=== PATIENT | male | born 1980 | race Two or more races ===

== ENCOUNTER 2018-01-22 00:21 | Emergency (ER) | payer MEDICAID, SELFPAY ==
[~2018-01-22] VITALS: Ht 175.3 cm; Wt 90.4 kg
[2018-01-22] MEDS ORDERED: INSU100V8 SQ (01:01)
[2018-01-22] MEDS ORDERED: LEVO50TA5 PO (01:01)
[2018-01-22] MEDS ORDERED: ATOR40TA PO (01:01)
[2018-01-22] MEDS ORDERED: SPIR25TA3 PO (01:01)
[2018-01-22] MEDS ORDERED: PREG50CA PO (01:01)
[2018-01-22] MEDS ORDERED: LISI-167 PO (01:01)
[2018-01-22] MEDS ORDERED: BETH10TA12 PO (01:01)
[2018-01-22] MEDS ORDERED: ISOS60TA36 PO (01:01)
[2018-01-22] MEDS ORDERED: CITA20TA6 PO (01:01)
[2018-01-22] MEDS ORDERED: METO-99 PO (01:01)
[2018-01-22] MEDS ORDERED: WARF10TA PO (01:01)
[2018-01-22] MEDS ORDERED: TAMS0.4C2 PO (01:01)
[2018-01-22] MEDS ORDERED: PROMETHAZINE 25 MG/ML, 1ML ONE (01:27)
[2018-01-22] MEDS ORDERED: ACETAMINOPHEN 500 MG TABLET ONE (01:27)
[2018-01-22] MEDS ORDERED: PROMETHAZINE 25 MG/ML, 1ML IM ONE (01:30)
[2018-01-22] MEDS ORDERED: ACETAMINOPHEN 500 MG TABLET PO ONE (01:30)
[2018-01-22 01:44] LABS: BASOPHILS # (AUTO) 0.06 x10^3/uL (0-0.1); BASOPHILS % (AUTO) 1 % (0-1); EOSINOPHILS # (AUTO) 0.26 x10^3/uL (0-0.4); EOSINOPHILS % (AUTO) 4 % (1-7); LYMPHOCYTES % (AUTO) 40 % (22-44); MD NO; MEAN CORPUSCULAR HEMOGLOBIN 30.6 pg (27.5-34.5); MEAN CORPUSCULAR VOLUME 89.8 fL (81-97); MEAN PLATELET VOLUME 7.5 fL (7.4-10.4); MONOCYTES # (AUTO) 0.77 x10^3/uL (0.2-0.8); MONOCYTES % (AUTO) 12 % (2-9); NEUTROPHILS # (AUTO) 2.95 x10^3/uL (1.8-6.8); NEUTROPHILS % (AUTO) 44 % (42-75); PLATELET COUNT 280 x10^3/uL (130-400); RED BLOOD COUNT 4.92 x10^6/uL (4.38-5.82); RED CELL DISTRIBUTION WIDTH 13.3 % (9.4-14.8)
[2018-01-22 01:51] LABS: INTERNATIONAL NORMALIZED RATIO 1.06 (0.93-1.1)
[2018-01-22 01:55] LABS: ALBUMIN 3.1 g/dL (3.4-5.0); ANION GAP 5 mmol/L (5-15); CALCIUM 8.7 mg/dL (8.5-10.1); CHLORIDE 105 mmol/L (98-107)
[2018-01-22 01:59] LABS: ALANINE AMINOTRANSFERASE 48 U/L (12-78); ALKALINE PHOSPHATASE 140 U/L (45-117); BILIRUBIN,TOTAL 0.5 mg/dL (0.2-1.0); CREATININE 1.48 mg/dL (0.7-1.3); TOTAL PROTEIN 6.9 g/dL (6.4-8.2)
[2018-01-22 02:38] VITALS: BP 123/78
== END 2018-01-22 03:50 | disposition home or self-care (01) ==
LOC: ED 03:00
DX: E11.22 Type 2 diabetes mellitus with diabetic chronic kidney disease (principal); E11.65 Type 2 diabetes mellitus with hyperglycemia; N18.5 Chronic kidney disease, stage 5; R55 Syncope and collapse; R51 Headache
CPT/HCPCS: 36415; 70450; 80053; 85025; 85610; 85730; 93005; 96372; 99285; J2550

== ENCOUNTER 2018-04-20 21:47 | Inpatient (IN) | payer MEDICAID ==
[~2018-04-20] VITALS: Ht 175.3 cm; Wt 91.1 kg
[~2018-04-20 21:47] MED LIST: ATOR40TA PO; BETH10TA12 PO; CITA20TA6 PO; INSU100V8 SQ; ISOS60TA36 PO; LEVO50TA5 PO; LISI-167 PO; METO-99 PO; PREG50CA PO; SPIR25TA5 PO; TAMS0.4C2 PO; WARF10TA PO
[2018-04-20] MEDS ORDERED: ASPIRIN 81 MG TABLET CHEW ONE (22:22)
[2018-04-20] MEDS ORDERED: ASPIRIN 81 MG TABLET CHEW PO ONE (22:30)
[2018-04-20 22:31] LABS: BASOPHILS # (AUTO) 0.08 x10^3/uL (0-0.1); BASOPHILS % (AUTO) 1 % (0-1); EOSINOPHILS # (AUTO) 0.19 x10^3/uL (0-0.4); EOSINOPHILS % (AUTO) 2 % (1-7); LYMPHOCYTES # (AUTO) 3.73 x10^3/uL (1-3.4); LYMPHOCYTES % (AUTO) 39 % (22-44); MD NO; MEAN CORPUSCULAR HEMOGLOBIN 29.9 pg (27.5-34.5); MEAN CORPUSCULAR HGB CONC 33.3 g/dL (33.2-36.2); MEAN CORPUSCULAR VOLUME 89.9 fL (81-97); MEAN PLATELET VOLUME 7.4 fL (7.4-10.4); MONOCYTES # (AUTO) 0.82 x10^3/uL (0.2-0.8); MONOCYTES % (AUTO) 9 % (2-9); NEUTROPHILS # (AUTO) 4.72 x10^3/uL (1.8-6.8); NEUTROPHILS % (AUTO) 50 % (42-75); PLATELET COUNT 328 x10^3/uL (130-400); RED BLOOD COUNT 4.82 x10^6/uL (4.38-5.82); RED CELL DISTRIBUTION WIDTH 13.4 % (9.4-14.8)
[2018-04-20 22:41] LABS: ALANINE AMINOTRANSFERASE 108 U/L (12-78); ANION GAP 7 mmol/L (5-15); CALCIUM 8.6 mg/dL (8.5-10.1); CHLORIDE 104 mmol/L (98-107); CREATININE 1.14 mg/dL (0.7-1.3)
[2018-04-20 22:45] LABS: ALKALINE PHOSPHATASE 140 U/L (45-117); BILIRUBIN,TOTAL 0.3 mg/dL (0.2-1.0)
[2018-04-20 22:47] LABS: TROPONIN I 0.121 ng/mL (0.000-0.045)
[2018-04-20] MEDS ORDERED: NITROGLYCERIN OINT 2%, 1GM TP ONE ×2 (23:23→23:30)
[2018-04-20] MEDS ORDERED: MORPHINE SULFATE 4 MG/ML, 1ML ONE (23:24)
[2018-04-20] MEDS ORDERED: SODIUM CHLORIDE FLUSH 10ML SYR IVF ONE (23:30)
[2018-04-20] MEDS ORDERED: MORPHINE SULFATE 4 MG/ML, 1ML IVPush PRN (23:30)
[2018-04-20 23:34] LABS: INTERNATIONAL NORMALIZED RATIO 1.89 (0.93-1.1); PROTHROMBIN TIME 19.2 Seconds (9.6-11.5)
[2018-04-21 00:07] VITALS: BP 157/97
[2018-04-21] MEDS ORDERED: BISACODYL 10 MG SUPP PR PRN (00:30)
[2018-04-21] MEDS ORDERED: POLYETHYLENE GLYCOL 17 GM PACKET PO PRN (00:30)
[2018-04-21] MEDS ORDERED: OXYcodone IR 5MG TABLET PO PRN (00:30)
[2018-04-21] MEDS ORDERED: PROMETHAZINE 25 MG/ML, 1ML IM PRN (00:30)
[2018-04-21] MEDS ORDERED: morphine SULFATE 10 MG/ML, 1ML IVPush PRN (00:30)
[2018-04-21] MEDS ORDERED: hydrALAzine 20 MG/ML, 1ML IVPush PRN (00:30)
[2018-04-21] MEDS ORDERED: DOCUSATE 100 MG CAPSULE PO PRN (00:30)
[2018-04-21] MEDS ORDERED: ONDANSETRON 2MG/ML, 2ML IVPush PRN (00:30)
[2018-04-21] MEDS ORDERED: ONDANSETRON ODT 4 MG PO PRN (00:30)
[2018-04-21] MEDS ORDERED: LABETALOL 5MG/ML, 20ML IVPush PRN (00:30)
[2018-04-21] MEDS: NICOTINE 7 MG/24 HR PATCH.TD24 TD SCH (00:50)
[2018-04-21] MEDS: BETHANECHOL 10 MG TABLET PO SCH ×4 (00:55→20:09)
[2018-04-21] MEDS ORDERED: HEPARIN 5,000 UNITS/ML, 1ML IV ONE (01:00)
[2018-04-21 01:06] LABS: FREE T4 (FREE THYROXINE) 0.69 ng/dL (0.76-1.46); HEMOGLOBIN A1C 12.5 % (4.2-6.3); THYROID STIMULATING HORMONE 10.3 mIU/L (0.358-3.740)
[2018-04-21] MEDS: PREGABALIN 25 MG CAPSULE PO SCH ×4 (01:15→20:09)
[2018-04-21] MEDS: INSULIN LISPRO 100 UNITS/ML, PEN SQ-INSULIN SCH ×5 (01:22→20:09)
[2018-04-21] MEDS: HEPARIN 25,000 UNITS/500ML PMX 500 ML IV PRN (01:45)
[2018-04-21] MEDS: SODIUM CHLORIDE 0.9% 1,000 ML IV SCH ×2 (02:07→11:13)
[2018-04-21 03:08] VITALS: BP 145/96
[2018-04-21 03:31] LABS: BASOPHILS # (AUTO) 0.07 x10^3/uL (0-0.1); BASOPHILS % (AUTO) 1 % (0-1); EOSINOPHILS # (AUTO) 0.38 x10^3/uL (0-0.4); EOSINOPHILS % (AUTO) 4 % (1-7); LYMPHOCYTES # (AUTO) 4.03 x10^3/uL (1-3.4); LYMPHOCYTES % (AUTO) 39 % (22-44); MD NO; MEAN CORPUSCULAR HEMOGLOBIN 29.8 pg (27.5-34.5); MEAN CORPUSCULAR HGB CONC 33.2 g/dL (33.2-36.2); MEAN CORPUSCULAR VOLUME 89.9 fL (81-97); MEAN PLATELET VOLUME 7.2 fL (7.4-10.4); MONOCYTES # (AUTO) 0.76 x10^3/uL (0.2-0.8); MONOCYTES % (AUTO) 7 % (2-9); NEUTROPHILS # (AUTO) 5.09 x10^3/uL (1.8-6.8); NEUTROPHILS % (AUTO) 49 % (42-75); PLATELET COUNT 344 x10^3/uL (130-400); RED BLOOD COUNT 4.56 x10^6/uL (4.38-5.82); RED CELL DISTRIBUTION WIDTH 13.8 % (9.4-14.8)
[2018-04-21 03:44] LABS: ALANINE AMINOTRANSFERASE 99 U/L (12-78); ALBUMIN 2.7 g/dL (3.4-5.0); ANION GAP 8 mmol/L (5-15); CALCIUM 8.2 mg/dL (8.5-10.1); CHLORIDE 108 mmol/L (98-107); CHOLESTEROL, TOTAL 126 mg/dL (140-239); CREATININE 0.88 mg/dL (0.7-1.3)
[2018-04-21 03:48] LABS: ALKALINE PHOSPHATASE 125 U/L (45-117); BILIRUBIN,TOTAL 0.3 mg/dL (0.2-1.0); HDL CHOLESTEROL (DIRECT) 43 mg/dL (40-60); TOTAL PROTEIN 6.2 g/dL (6.4-8.2); TRIGLYCERIDES 81 mg/dL (50-200); VLDL CHOLESTEROL 16 mg/dL (0-25)
[2018-04-21 03:49] LABS: CHOL/HDL RATIO 2.9; HDL CHOL % 34 % (26-37); LDL CHOLESTEROL,CALCULATED 67 mg/dL (54-169); LDL/HDL RATIO 1.6 (0.5-3.0); TROPONIN I 0.122 ng/mL (0.000-0.045)
[2018-04-21 07:31] LABS: INTERNATIONAL NORMALIZED RATIO 1.89 (0.93-1.1); PROTHROMBIN TIME 19.2 Seconds (9.6-11.5)
[2018-04-21 07:36] VITALS: BP 106/60
[2018-04-21] MEDS: METOPROLOL TARTRATE 50 MG TABLET PO SCH ×2 (08:21→20:08)
[2018-04-21] MEDS: SPIRONOLACTONE 25 MG TABLET PO SCH (08:22)
[2018-04-21] MEDS: ISOSORBIDE MONONITRATE ER 60 MG TABLET PO SCH (08:22)
[2018-04-21] MEDS: TAMSULOSIN 0.4 MG CAP.ER.24H PO SCH (08:23)
[2018-04-21] MEDS: LISINOPRIL 10 MG TABLET PO SCH (08:23)
[2018-04-21] MEDS: HEPARIN 5,000 UNITS/ML, 1ML IV PRN ×2 (08:26→16:30)
[2018-04-21] MEDS: CITALOPRAM 20 MG TABLET PO SCH (09:00)
[2018-04-21] MEDS: LEVOTHYROXINE 50 MCG TABLET PO SCH (09:00)
[2018-04-21 09:09] LABS: TROPONIN I 0.121 ng/mL (0.000-0.045)
[2018-04-21] MEDS: ATORVASTATIN 40 MG TABLET PO SCH (09:27)
[2018-04-21 13:17] VITALS: BP 93/54
[2018-04-21 13:23] LABS: CULTURE INDICATED? YES; MICROSCOPIC AUTO
[2018-04-21 13:31] LABS: AMPHETAMINE SCREEN, URINE Negative (Negative); BARBITURATE SCREEN, URINE Negative (Negative); BENZODIAZEPINE SCREEN, URINE Negative (Negative); CANNABINOID SCREEN, URINE Negative (Negative); COCAINE SCREEN, URINE Negative (Negative); METHADONE SCREEN, URINE Negative (Negative); OPIATE SCREEN, URINE Positive (Negative)
[2018-04-21] MEDS ORDERED: WARFARIN 10 MG TABLET PO-COUM ONE (18:00)
[2018-04-21 19:58] VITALS: BP 114/62
[2018-04-22] MEDS: HEPARIN 5,000 UNITS/ML, 1ML IV PRN (00:01)
[2018-04-22] MEDS: HEPARIN 25,000 UNITS/500ML PMX 500 ML IV PRN (00:04)
[2018-04-22 00:10] VITALS: BP 118/69
[2018-04-22] MEDS: NICOTINE 7 MG/24 HR PATCH.TD24 TD SCH (00:30)
[2018-04-22 06:27] LABS: INTERNATIONAL NORMALIZED RATIO 1.38 (0.93-1.1); PROTHROMBIN TIME 14.1 Seconds (9.6-11.5)
[2018-04-22] MEDS ORDERED: INSULIN GLARGINE 100 UNITS/ML, PEN SQ-INSULIN SCH (06:30)
[2018-04-22] MEDS ORDERED: ENOX100S5 SQ (07:20)
[2018-04-22] MEDS ORDERED: ENOXAPARIN 100 MG/ML SQ SCH (07:30)
[2018-04-22 07:45] VITALS: BP 119/77
[2018-04-22] MEDS: ATORVASTATIN 40 MG TABLET PO SCH (08:04)
[2018-04-22] MEDS: CITALOPRAM 20 MG TABLET PO SCH (08:18)
[2018-04-22] MEDS: TAMSULOSIN 0.4 MG CAP.ER.24H PO SCH (08:18)
[2018-04-22] MEDS: BETHANECHOL 10 MG TABLET PO SCH (08:18)
[2018-04-22] MEDS: LEVOTHYROXINE 50 MCG TABLET PO SCH (08:18)
[2018-04-22] MEDS: PREGABALIN 25 MG CAPSULE PO SCH (08:18)
[2018-04-22] MEDS: METOPROLOL TARTRATE 50 MG TABLET PO SCH (08:19)
[2018-04-22] MEDS: LISINOPRIL 10 MG TABLET PO SCH (08:19)
[2018-04-22] MEDS: ISOSORBIDE MONONITRATE ER 60 MG TABLET PO SCH (08:19)
[2018-04-22] MEDS: SPIRONOLACTONE 25 MG TABLET PO SCH (08:19)
[2018-04-22] MEDS: INSULIN LISPRO 100 UNITS/ML, PEN SQ-INSULIN SCH (08:20)
[2018-04-22] MEDS ORDERED: WARF10TA PO (09:26)
== END 2018-04-22 12:48 | disposition home or self-care (01) | DRG 281 ==
LOC: ED 22:33 → EDIP 23:14 → 5SO 04-21 00:23 → DCLOUNGE 04-22 12:35
PROVIDERS: ADMIT Internal Medicine; ATTEND Internal Medicine
DX: I21.4 Non-ST elevation (NSTEMI) myocardial infarction (principal); D68.69 Other thrombophilia; E44.0 Moderate protein-calorie malnutrition; I42.9 Cardiomyopathy, unspecified; E03.9 Hypothyroidism, unspecified; E11.9 Type 2 diabetes mellitus without complications; E78.5 Hyperlipidemia, unspecified; G89.29 Other chronic pain; F32.9 Major depressive disorder, single episode, unspecified; I25.110 Atherosclerotic heart disease of native coronary artery with unstable angina pectoris; I11.0 Hypertensive heart disease with heart failure; F15.10 Other stimulant abuse, uncomplicated; I50.9 Heart failure, unspecified; N40.0 Benign prostatic hyperplasia without lower urinary tract symptoms; Z79.01 Long term (current) use of anticoagulants; Z82.49 Family history of ischemic heart disease and other diseases of the circulatory system; Z87.891 Personal history of nicotine dependence; Z95.1 Presence of aortocoronary bypass graft; Z79.899 Other long term (current) drug therapy; Z68.29 Body mass index [BMI] 29.0-29.9, adult
CPT/HCPCS: 36415; 71045; 80053; 80061; 80307; 81001; 82962; 83036; 83735; 84439; 84443; 84484; 85025; 85520; 85610; 85730; 87077; 87086; 87186; 93005; 96374; G0378; J1644; J1650; J1815; J2270; J7030

== ENCOUNTER 2019-09-29 08:51 | Inpatient (IN) | payer MEDICAID ==
[~2019-09-29] VITALS: Ht 175.3 cm; Wt 93.8 kg
[~2019-09-29 08:51] MED LIST changes: +ENOX100S5 SQ
--- NOTE | 2019-09-29 08:57 | NUR ---
840 code cardiac paged 840 cardiology paged 842 pharmacy laboratory technician in house and aware/dr antunez in pharmacy laboratory technician and aware 850 pt arrived to er trauma [address] antunez at bedside
[2019-09-29 09:18] LABS: BASOPHILS # (AUTO) 0.03 x10^3/uL (0-0.1); BASOPHILS % (AUTO) 0 % (0-1); EOSINOPHILS % (AUTO) 2 % (1-7); LYMPHOCYTES # (AUTO) 1.82 x10^3/uL (1-3.4); LYMPHOCYTES % (AUTO) 26 % (22-44); MD NO; MEAN CORPUSCULAR HEMOGLOBIN 29.9 pg (27.5-34.5); MEAN CORPUSCULAR HGB CONC 33.4 g/dL (33.2-36.2); MEAN CORPUSCULAR VOLUME 89.4 fL (81-97); MEAN PLATELET VOLUME 7.5 fL (7.4-10.4); MONOCYTES # (AUTO) 0.46 x10^3/uL (0.2-0.8); MONOCYTES % (AUTO) 7 % (2-9); NEUTROPHILS # (AUTO) 4.49 x10^3/uL (1.8-6.8); NEUTROPHILS % (AUTO) 65 % (42-75); PLATELET COUNT 377 x10^3/uL (130-400); RED CELL DISTRIBUTION WIDTH 13.3 % (9.4-14.8)
[2019-09-29] MEDS ORDERED: SODIUM CHLORIDE 0.9% 1,000ML IVBOLUS ONE (09:30)
--- NOTE | 2019-09-29 09:31 | NUR ---
CODE CARDIAC CALLED OVERHEAD. PT HAD SUDDEN-ONSET CHEST PAIN WHILE STANDING AT WORK TODAY AT AROUND 8AM. CHEST PAIN RESOLVED UPON ARRIVAL. PT WAS GIVEN 324 ASA EN ROUTE BY EMS. CODE CARDIAC WAS CANCELLED BY DR. GONZALEZ, WHO SAW PATIENT AT BEDSIDE, AND DR. AREVALO.
[2019-09-29 09:35] LABS: ALBUMIN 2.7 g/dL (3.4-5.0); ANION GAP 8 mmol/L (5-15); CALCIUM 8.5 mg/dL (8.5-10.1); CHLORIDE 103 mmol/L (98-107)
[2019-09-29 09:38] LABS: ALANINE AMINOTRANSFERASE 30 U/L (12-78); ALKALINE PHOSPHATASE 180 U/L (45-117); BILIRUBIN,TOTAL 0.3 mg/dL (0.2-1.0); CREATININE 1.19 mg/dL (0.7-1.3); TOTAL PROTEIN 7.3 g/dL (6.4-8.2)
[2019-09-29 09:40] LABS: TROPONIN I 0.157 ng/mL (0.000-0.045)
--- NOTE | 2019-09-29 09:51 | NUR ---
PATIENT COMPLAINED OF URINARY RETENTION. NOTIFIED DR. AREVALO. PATIENT VOIDED APPROX. 275 ML URINE THEN BLADDER SCAN WAS PERFORMED WITH A RESIDUAL OF 333ML. DR. AREVALO NOTIFIED. URINE COLLECTED AND SENT TO LAB. Addendum: 09/29/19 at 1024 by EZBOB URINE FROM VOIDING NOT SENT TO LAB. BOGGS CATHETER WAS INSERTED AND URINE THAT WAS SENT TO LAB WAS FROM CATHETER INSERTION.
[2019-09-29] MEDS ORDERED: LIDOCAINE 2%,20 ML JEL.PF.APP MM ONE (10:02)
--- NOTE | 2019-09-29 10:23 | NUR ---
BOGGS CATHETER INSTERTED AT THE ORDER OF DR. AREVALO. URINE COLLECTED AND SENT TO LAB.
[2019-09-29] MEDS ORDERED: ASPIRIN 81 MG TABLET CHEW PO ONE (10:30)
[2019-09-29 10:37] LABS: MICROSCOPIC AUTO
[2019-09-29 10:42] LABS: CULTURE INDICATED? YES
--- NOTE | 2019-09-29 10:42 | NUR ---
REPORT RECEIVED FROM PANCHO JORDAN, ASSUMED CARE OF PT.
[2019-09-29] MEDS ORDERED: ASPIRIN 81 MG TABLET CHEW ONE (10:43)
--- NOTE | 2019-09-29 10:47 | NUR ---
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
--- NOTE | 2019-09-29 11:47 | NUR ---
PT RESTING ON GURNEY AT THIS TIME, VSS. NAD NOTED.
--- NOTE | 2019-09-29 12:23 | NUR ---
ADMITTIMG PROVIDER IN TO EVAL PT
[2019-09-29] MEDS ORDERED: ONDANSETRON 2MG/ML, 2ML IV PRN (13:00)
[2019-09-29] MEDS: INSULIN LISPRO 100 UNITS/ML, PEN SQ-INSULIN SCH ×3 (13:00→20:30)
[2019-09-29] MEDS ORDERED: NITROGLYCERIN 0.4 MG BOTTLE (25 TABS) SL PRN (13:00)
[2019-09-29] MEDS ORDERED: NITROGLYCERIN 0.4 MG/SPRAY SL PRN (13:00)
[2019-09-29] MEDS ORDERED: morphine SULFATE 10 MG/ML, 1ML IV PRN (13:00)
[2019-09-29] MEDS ORDERED: NITROGLYCERIN SINGLE TAB 0.4 MG SL PRN (13:00)
[2019-09-29] MEDS ORDERED: CEFTRIAXONE PMX 1GM/50ML 50 ML ONE (14:22)
--- NOTE | 2019-09-29 15:03 | NUR ---
PT GIVEN MEAL TRAY AT THIS TIME. VSS, NAD NOTED
[2019-09-29] MEDS: CEFTRIAXONE PMX 1GM/50ML 50 ML IV SCH (15:21)
--- NOTE | 2019-09-29 15:22 | NUR ---
PHARM CALLED TO VERIFY HEPARIN ACS GTT. HAS NOT BEEN VERIFIED YET. Addendum: 09/29/19 at 1531 by AMCCOMB 10A ORDERED STAT.
[2019-09-29] MEDS ORDERED: HEPARIN 5,000 UNITS/ML, 1ML ONE (15:26)
[2019-09-29] MEDS ORDERED: HEPARIN 25,000 UNITS/250ML PMX 250 ML ONE (15:26)
[2019-09-29] MEDS: HEPARIN 25,000 UNITS/250ML PMX 250 ML IV PRN (15:51)
[2019-09-29] MEDS: HEPARIN 5,000 UNITS/ML, 1ML IV ONE ×2 (15:52→15:54)
--- NOTE | 2019-09-29 16:27 | NUR ---
REPORT TO RECIEVING RN
[2019-09-29 17:00] LABS: AMPHETAMINE SCREEN, URINE Negative (Negative); BARBITURATE SCREEN, URINE Negative (Negative); BENZODIAZEPINE SCREEN, URINE Negative (Negative); CANNABINOID SCREEN, URINE Negative (Negative); COCAINE SCREEN, URINE Negative (Negative); METHADONE SCREEN, URINE Negative (Negative); OPIATE SCREEN, URINE Negative (Negative)
[2019-09-29] MEDS: SODIUM CHLORIDE 0.9% 1,000 ML IV SCH (17:33)
[2019-09-29] MEDS: PREGABALIN 25 MG CAPSULE PO SCH ×2 (17:33→20:28)
[2019-09-29] MEDS: TAMSULOSIN 0.4 MG CAP.ER.24H PO SCH (17:33)
[2019-09-29] MEDS: SPIRONOLACTONE 25 MG TABLET PO SCH (17:34)
[2019-09-29] MEDS: BETHANECHOL 10 MG TABLET PO SCH ×2 (18:04→20:28)
[2019-09-29 18:07] VITALS: BP 143/62
[2019-09-29 20:14] VITALS: BP 147/95
[2019-09-29] MEDS: SODIUM CHLORIDE FLUSH 10ML SYR IVF SCH (20:27)
[2019-09-29] MEDS ORDERED: INSULIN GLARGINE 100 UNITS/ML, PEN SQ-INSULIN SCH (21:00)
[2019-09-29] MEDS ORDERED: NICOTINE 21 MG/24 HR PATCH.TD24 TD SCH (21:30)
[2019-09-29 22:07] LABS: TROPONIN I 0.176 ng/mL (0.000-0.045)
[2019-09-29] MEDS: NICOTINE 21 MG/24 HR PATCH.TD24 TD SCH (22:18)
[2019-09-29] MEDS: HEPARIN 5,000 UNITS/ML, 1ML IV PRN (23:20)
[2019-09-30 00:24] VITALS: BP 129/77
[2019-09-30] MEDS: SODIUM CHLORIDE 0.9% 1,000 ML IV SCH ×2 (01:25→09:38)
[2019-09-30] MEDS: ASPIRIN 325 MG TABLET EC PO SCH (05:42)
[2019-09-30] MEDS: HEPARIN 5,000 UNITS/ML, 1ML IV PRN ×2 (06:09→13:16)
[2019-09-30 06:49] LABS: MICROSCOPIC INDICATED
[2019-09-30 06:58] LABS: CULTURE INDICATED? NO
[2019-09-30 07:18] VITALS: BP 156/112
[2019-09-30] MEDS: ISOSORBIDE MONONITRATE ER 60 MG TABLET PO SCH (08:28)
[2019-09-30] MEDS: INSULIN LISPRO 100 UNITS/ML, PEN SQ-INSULIN SCH ×4 (08:28→20:40)
[2019-09-30] MEDS: LEVOTHYROXINE 50 MCG TABLET PO SCH (08:29)
[2019-09-30] MEDS: SPIRONOLACTONE 25 MG TABLET PO SCH (08:29)
[2019-09-30] MEDS: BETHANECHOL 10 MG TABLET PO SCH ×3 (08:29→20:39)
[2019-09-30] MEDS: CITALOPRAM 20 MG TABLET PO SCH (08:29)
[2019-09-30] MEDS: TAMSULOSIN 0.4 MG CAP.ER.24H PO SCH (08:29)
[2019-09-30] MEDS: LISINOPRIL 10 MG TABLET PO SCH (08:29)
[2019-09-30] MEDS: SODIUM CHLORIDE FLUSH 10ML SYR IVF SCH ×2 (08:30→20:39)
[2019-09-30] MEDS: PREGABALIN 25 MG CAPSULE PO SCH ×3 (08:38→20:39)
[2019-09-30 08:50] LABS: CHOL/HDL RATIO 5.3; LDL/HDL RATIO 2.3 (0.5-3.0)
[2019-09-30] MEDS ORDERED: ATORVASTATIN 40 MG TABLET PO SCH (09:00)
[2019-09-30] MEDS ORDERED: REGADENOSON 0.4 MG/5 ML SYRINGE ONE (11:20)
[2019-09-30] MEDS: CEFTRIAXONE PMX 1GM/50ML 50 ML IV SCH (12:52)
[2019-09-30] MEDS: HEPARIN 25,000 UNITS/250ML PMX 250 ML IV PRN (13:15)
[2019-09-30 13:18] VITALS: BP 104/69
[2019-09-30] MEDS: CARVEDILOL 3.125 MG TABLET PO SCH (16:59)
[2019-09-30 20:36] VITALS: BP 145/76
[2019-09-30] MEDS: NICOTINE 21 MG/24 HR PATCH.TD24 TD SCH (20:40)
[2019-09-30] MEDS ORDERED: INSULIN GLARGINE 100 UNITS/ML, PEN SQ-INSULIN SCH (21:00)
[2019-10-01 03:56] VITALS: BP 124/74
[2019-10-01] MEDS: CARVEDILOL 3.125 MG TABLET PO SCH (05:10)
[2019-10-01] MEDS: ASPIRIN 325 MG TABLET EC PO SCH (05:10)
[2019-10-01 07:40] VITALS: BP 132/80
[2019-10-01] MEDS: TAMSULOSIN 0.4 MG CAP.ER.24H PO SCH (08:43)
[2019-10-01] MEDS: BETHANECHOL 10 MG TABLET PO SCH ×2 (08:43→16:45)
[2019-10-01] MEDS: INSULIN LISPRO 100 UNITS/ML, PEN SQ-INSULIN SCH ×3 (08:44→16:45)
[2019-10-01] MEDS: ISOSORBIDE MONONITRATE ER 60 MG TABLET PO SCH (08:44)
[2019-10-01] MEDS: LEVOTHYROXINE 50 MCG TABLET PO SCH (08:44)
[2019-10-01] MEDS: SPIRONOLACTONE 25 MG TABLET PO SCH (08:44)
[2019-10-01] MEDS: LISINOPRIL 10 MG TABLET PO SCH (08:44)
[2019-10-01] MEDS: CITALOPRAM 20 MG TABLET PO SCH (08:45)
[2019-10-01] MEDS: PREGABALIN 25 MG CAPSULE PO SCH ×2 (08:45→16:45)
[2019-10-01] MEDS: SODIUM CHLORIDE FLUSH 10ML SYR IVF SCH (08:46)
[2019-10-01] MEDS: CEFTRIAXONE PMX 1GM/50ML 50 ML IV SCH (11:49)
[2019-10-01] MEDS ORDERED: SODIUM CHLORIDE 0.9% 1,000 ML IV SCH (13:00)
[2019-10-01 13:21] VITALS: BP 131/80
[2019-10-01] MEDS ORDERED: TAMS-11 PO (14:54)
[2019-10-01] MEDS ORDERED: ISOS60TA36 PO (14:54)
[2019-10-01] MEDS ORDERED: CARV3.1212 PO (14:54)
[2019-10-01] MEDS ORDERED: CITA20TA6 PO (14:54)
[2019-10-01] MEDS ORDERED: LEVO50TA5 PO (14:54)
[2019-10-01] MEDS ORDERED: SPIR25TA5 PO (14:54)
[2019-10-01] MEDS ORDERED: INSU100V8 SQ (14:54)
[2019-10-01] MEDS ORDERED: LISI-167 PO (14:54)
[2019-10-01] MEDS ORDERED: BETHANECHOL PO (14:54)
[2019-10-01] MEDS ORDERED: PREG50CA PO (14:54)
[2019-10-01] MEDS ORDERED: INSU100I11 SQ-INSULIN (14:54)
[2019-10-01] MEDS ORDERED: ATOR40TA PO (14:54)
[2019-10-01] MEDS ORDERED: ASPI81TA45 PO (14:55)
[2019-10-01] MEDS ORDERED: ATORVASTATIN 40 MG TABLET PO SCH (21:00)
== END 2019-10-01 16:49 | disposition home or self-care (01) | DRG 303 ==
LOC: MERGE 08:51 → ED 09:05 → EDIP 13:42 → 5SO 17:20 → DCLOUNGE 10-01 16:30
PROVIDERS: ADMIT Internal Medicine; ATTEND Internal Medicine
DX: I25.10 Atherosclerotic heart disease of native coronary artery without angina pectoris (principal); I50.40 Unspecified combined systolic (congestive) and diastolic (congestive) heart failure; J98.11 Atelectasis; E03.9 Hypothyroidism, unspecified; I42.7 Cardiomyopathy due to drug and external agent; E11.65 Type 2 diabetes mellitus with hyperglycemia; E78.5 Hyperlipidemia, unspecified; F15.90 Other stimulant use, unspecified, uncomplicated; F32.9 Major depressive disorder, single episode, unspecified; I11.0 Hypertensive heart disease with heart failure; I25.5 Ischemic cardiomyopathy; N31.9 Neuromuscular dysfunction of bladder, unspecified; R33.9 Retention of urine, unspecified; N40.1 Benign prostatic hyperplasia with lower urinary tract symptoms; Z82.49 Family history of ischemic heart disease and other diseases of the circulatory system; Z87.891 Personal history of nicotine dependence; Z91.14 Patient's other noncompliance with medication regimen; Z91.19 Patient's noncompliance with other medical treatment and regimen; Z95.1 Presence of aortocoronary bypass graft; Z95.5 Presence of coronary angioplasty implant and graft
CPT/HCPCS: 36415; 71045; 78452; 80047; 80053; 80061; 80307; 81001; 82962; 83036; 83880; 84443; 84484; 85014; 85018; 85025; 85520; 87077; 87086; 87186; 93005; 93017; 93306; 93356; 99285; G0378; J0696; J1644; J2405; J2785; A9502; J1815; J7030

== ENCOUNTER 2019-11-12 22:36 | Observation (INO) | payer MEDICAID ==
[~2019-11-12] VITALS: Ht 175.3 cm; Wt 86.7 kg
[~2019-11-12 22:36] MED LIST changes: +ASPI81TA45 PO; +BETHANECHOL PO; +CARV3.1212 PO; +INSU100I11 SQ-INSULIN; +TAMS-11 PO
--- NOTE | 2019-11-12 22:47 | NUR ---
EKG DONE IN TRIAGE
[2019-11-12] MEDS ORDERED: LORazepam 1MG TABLET ONE (23:24)
--- NOTE | 2019-11-12 23:26 | NUR ---
MEDS ADMIN PER SEP. PT RESTING ON BRIAN.
[2019-11-12] MEDS ORDERED: LORazepam 1MG TABLET PO ONE (23:30)
[2019-11-12 23:50] LABS: BASOPHILS # (AUTO) 0.07 x10^3/uL (0-0.1); BASOPHILS % (AUTO) 1 % (0-1); EOSINOPHILS # (AUTO) 0.12 x10^3/uL (0-0.4); EOSINOPHILS % (AUTO) 2 % (1-7); LYMPHOCYTES % (AUTO) 11 % (22-44); MD NO; MEAN CORPUSCULAR HEMOGLOBIN 29.9 pg (27.5-34.5); MEAN CORPUSCULAR HGB CONC 33.6 g/dL (33.2-36.2); MEAN CORPUSCULAR VOLUME 89.1 fL (81-97); MEAN PLATELET VOLUME 8.1 fL (7.4-10.4); MONOCYTES # (AUTO) 0.88 x10^3/uL (0.2-0.8); MONOCYTES % (AUTO) 12 % (2-9); NEUTROPHILS # (AUTO) 5.52 x10^3/uL (1.8-6.8); NEUTROPHILS % (AUTO) 75 % (42-75); PLATELET COUNT 263 x10^3/uL (130-400); RED CELL DISTRIBUTION WIDTH 13.4 % (9.4-14.8)
--- NOTE | 2019-11-12 23:50 | NUR ---
REPORT GIVEN TO FRITZ JORDAN.
--- NOTE | 2019-11-12 23:52 | NUR ---
LATE NOTE: THIS TECH TRIAGED PT
[2019-11-12 23:59] LABS: ANION GAP 8 mmol/L (5-15); CALCIUM 8.5 mg/dL (8.5-10.1); CHLORIDE 97 mmol/L (98-107); CREATININE 1.74 mg/dL (0.7-1.3)
[2019-11-13] VITALS (8 sets, daily range): BP systolic 104–151; BP diastolic 64–99
--- NOTE | 2019-11-13 00:04 | NUR ---
REPORT FROM JULIAN GUTIÉRREZ. PT RESTING IN GURNEY, MOSTLY DROWSY BUT ARROUSABLE TO VOICE. PT DENIES NEEDS. UPDATED PT TO POC (RESULTS/RECHECK) AND DEMONSTRATES UNDERSTANDING.
[2019-11-13 00:08] LABS: TROPONIN I 0.331 ng/mL (0.000-0.045)
[2019-11-13] MEDS ORDERED: ASPIRIN 81 MG TABLET CHEW ONE (00:11)
--- NOTE | 2019-11-13 00:23 | NUR ---
IV ESTBALISHED. PT MEDICATED PER EMAR. REPEAT EKG COMPLETED. PT DENIES CP AT THIS TIME, ENDORSES LOW BACK PAIN. ERP AWARE. PT REPORTS TAKING INSULIN FOR DM, NON-COMPLIANT. LAST DOSE "ABOUT FOUR DAYS AGO BEFORE I STARTED PARTYING". PT REQUESTING FOR "PIPE" TO BE THROWN AWAY, SECURITY CALLED BY TECH TO ASSUME ITEM. BP/SPO2/ECG MONITORING IN PLACE. NSR ON MONITOR, ELEVATION IN V2 ON EKG. NO CODE CARDIAC PER ERP
[2019-11-13] MEDS ORDERED: ASPIRIN 81 MG TABLET CHEW PO ONE (00:30)
[2019-11-13] MEDS ORDERED: SODIUM CHLORIDE 0.9% 1,000ML IVBOLUS ONE (00:30)
[2019-11-13] MEDS ORDERED: SODIUM CHLORIDE FLUSH 10ML SYR IVF ONE (00:30)
--- NOTE | 2019-11-13 00:42 | NUR ---
REPORT TO JULIAN HANSEN ON FLOOR
[2019-11-13] MEDS ORDERED: morphine SULFATE 10 MG/ML, 1ML IVPush PRN (01:30)
[2019-11-13] MEDS ORDERED: ACETAMINOPHEN 325 MG TABLET PO PRN (01:30)
[2019-11-13] MEDS ORDERED: ONDANSETRON 2MG/ML, 2ML IVPush PRN (01:30)
[2019-11-13] MEDS: INSULIN GLARGINE 100 UNITS/ML, PEN SQ-INSULIN SCH ×2 (02:19→20:32)
[2019-11-13 03:14] LABS: TROPONIN I 0.307 ng/mL (0.000-0.045)
[2019-11-13] MEDS: ASPIRIN 325 MG TABLET EC PO SCH (06:00)
[2019-11-13] MEDS: CARVEDILOL 3.125 MG TABLET PO SCH ×2 (06:05→18:27)
[2019-11-13 07:34] LABS: TROPONIN I 0.345 ng/mL (0.000-0.045)
[2019-11-13] MEDS: INSULIN LISPRO 100 UNITS/ML, PEN SQ-INSULIN SCH ×4 (07:56→20:31)
[2019-11-13] MEDS: ISOSORBIDE MONONITRATE ER 60 MG TABLET PO SCH (07:57)
[2019-11-13] MEDS: ATORVASTATIN 40 MG TABLET PO SCH (07:57)
[2019-11-13] MEDS: LISINOPRIL 10 MG TABLET PO SCH (08:00)
[2019-11-13] MEDS: PREGABALIN 25 MG CAPSULE PO SCH ×3 (08:00→20:32)
[2019-11-13] MEDS: CITALOPRAM 20 MG TABLET PO SCH (08:01)
[2019-11-13] MEDS: TAMSULOSIN 0.4 MG CAP.ER.24H PO SCH (08:01)
[2019-11-13] MEDS: SPIRONOLACTONE 25 MG TABLET PO SCH (08:01)
[2019-11-13] MEDS: LEVOTHYROXINE 50 MCG TABLET PO SCH (08:01)
[2019-11-13 09:39] LABS: ANION GAP 5 mmol/L (5-15); CHLORIDE 107 mmol/L (98-107); CREATININE 1.08 mg/dL (0.7-1.3)
[2019-11-13] MEDS: SODIUM CHLORIDE 0.9% 1,000 ML IV SCH (11:42)
[2019-11-13 15:03] LABS: TROPONIN I 0.306 ng/mL (0.000-0.045)
[2019-11-13 23:23] LABS: TROPONIN I 0.298 ng/mL (0.000-0.045)
[2019-11-14 00:44] VITALS: BP 132/71
[2019-11-14] MEDS: SODIUM CHLORIDE 0.9% 1,000 ML IV SCH (00:50)
[2019-11-14 05:26] LABS: ANION GAP 7 mmol/L (5-15); CALCIUM 7.9 mg/dL (8.5-10.1); CHLORIDE 110 mmol/L (98-107); CREATININE 0.99 mg/dL (0.7-1.3)
[2019-11-14 05:27] VITALS: BP 137/79
[2019-11-14 05:28] LABS: MEAN CORPUSCULAR HGB CONC 33.7 g/dL (33.2-36.2); MEAN PLATELET VOLUME 7.9 fL (7.4-10.4); PLATELET COUNT 227 x10^3/uL (130-400); RED CELL DISTRIBUTION WIDTH 13.1 % (9.4-14.8)
[2019-11-14] MEDS: CARVEDILOL 3.125 MG TABLET PO SCH (05:30)
[2019-11-14] MEDS: ASPIRIN 325 MG TABLET EC PO SCH (05:30)
[2019-11-14 06:37] LABS: BASOPHILS # (AUTO) 0.04 x10^3/uL (0-0.1); BASOPHILS % (AUTO) 1 % (0-1); EOSINOPHILS # (AUTO) 0.05 x10^3/uL (0-0.4); EOSINOPHILS % (AUTO) 1 % (1-7); LYMPHOCYTES # (AUTO) 1.46 x10^3/uL (1-3.4); LYMPHOCYTES % (AUTO) 25 % (22-44); MD SCAN; MONOCYTES # (AUTO) 0.92 x10^3/uL (0.2-0.8); MONOCYTES % (AUTO) 16 % (2-9); NEUTROPHILS # (AUTO) 3.32 x10^3/uL (1.8-6.8); NEUTROPHILS % (AUTO) 57 % (42-75)
[2019-11-14 07:25] VITALS: BP 136/81
[2019-11-14] MEDS: INSULIN LISPRO 100 UNITS/ML, PEN SQ-INSULIN SCH ×2 (08:05→11:26)
[2019-11-14] MEDS: LISINOPRIL 10 MG TABLET PO SCH (08:07)
[2019-11-14] MEDS: PREGABALIN 25 MG CAPSULE PO SCH (08:07)
[2019-11-14] MEDS: ATORVASTATIN 40 MG TABLET PO SCH (08:07)
[2019-11-14] MEDS: TAMSULOSIN 0.4 MG CAP.ER.24H PO SCH (08:08)
[2019-11-14] MEDS: CITALOPRAM 20 MG TABLET PO SCH (08:08)
[2019-11-14] MEDS: SPIRONOLACTONE 25 MG TABLET PO SCH (08:08)
[2019-11-14] MEDS: LEVOTHYROXINE 50 MCG TABLET PO SCH (08:08)
[2019-11-14] MEDS: ISOSORBIDE MONONITRATE ER 60 MG TABLET PO SCH (08:10)
[2019-11-14 12:28] VITALS: BP 132/78
== END 2019-11-14 17:45 | disposition home or self-care (01) ==
LOC: ED 23:05 → INTOOBSV 11-13 00:11 → EDIP 11-13 00:11 → 5SO 11-13 01:19
PROVIDERS: ATTEND Hospitalist
DX: R07.89 Other chest pain (principal); I25.10 Atherosclerotic heart disease of native coronary artery without angina pectoris; E11.65 Type 2 diabetes mellitus with hyperglycemia; I10 Essential (primary) hypertension; E78.5 Hyperlipidemia, unspecified; E03.9 Hypothyroidism, unspecified; F32.9 Major depressive disorder, single episode, unspecified; F41.9 Anxiety disorder, unspecified; N40.1 Benign prostatic hyperplasia with lower urinary tract symptoms; N17.0 Acute kidney failure with tubular necrosis; I42.7 Cardiomyopathy due to drug and external agent; F15.90 Other stimulant use, unspecified, uncomplicated; Z79.4 Long term (current) use of insulin; Z91.14 Patient's other noncompliance with medication regimen; Z95.1 Presence of aortocoronary bypass graft
CPT/HCPCS: 36415; 71045; 80048; 82040; 82962; 83880; 84484; 85025; 93005; 96361; 96374; 99285; G0378; J1815; J2405; J7030